=== PATIENT | female | born 1980 | race Caucasian/White ===

== ENCOUNTER 2017-04-11 22:47 | Emergency (ER) | payer SELFPAY ==
[2017-04-11 23:12] VITALS: BMI 42.9
--- NOTE | 2017-04-11 23:16 | ED PDOC ---
Arrival/HPI - General Chief Complaint: Chest Pain Time Seen by Provider: 04/11/17 22:52 Historian: Patient - History of Present Illness Narrative History of Present Illness (Text): 04/11/17 23:13 Shilpi Field is a 36 year old female who presents to the emergency department complaining of chest tightness and palpitations since earlier today. States that she has URI/sinus congestion and took Theraflu earlier today, after which the symptoms presented. Currently states she experiences chest tightness only while coughing. Denies any fever, chills, headache, dizziness, shortness of breath, abdominal pain, nausea, vomiting, diarrhea, urinary symptoms, or any other complaints at this time. Time/Duration: Other (tonight ) Symptom Course: Intermittent Severity Level: Mild Activities at Onset: Light Context: Home Past Medical History - Provider Review Nursing Documentation Reviewed: Yes - Psychiatric Hx Substance Use: No Family/Social History - Physician Review Nursing Documentation Reviewed: Yes Family/Social History: No Known Family HX Smoking Status: y Hx Alcohol Use: No Hx Substance Use: No Allergies/Home Meds Allergies/Adverse Reactions: Allergies No Known Allergies Allergy (Verified 02/22/15 13:41) Review of Systems - Physician Review All systems were reviewed & negative as marked: Yes - Review of Systems Constitutional: Normal. absent: Fatigue, Fevers ENT: Rhinorrhea, Sinus Congestion Respiratory: Cough. absent: SOB, Sputum Cardiovascular: Chest Pain, Palpitations Gastrointestinal: Normal. absent: Abdominal Pain, Diarrhea, Nausea, Vomiting Genitourinary Female: Normal Neurological: Normal. absent: Headache, Dizziness Psychiatric: Normal Physical Exam Vital Signs Reviewed: Yes Vital Signs Pulse Resp BP Pulse Ox 04/12/17 01:42 99 H 20 137/83 95 Temperature: Afebrile Blood Pressure: Normal Pulse: Regular Respiratory Rate: Normal Appearance: Positive for: Well-Appearing, Non-Toxic, Comfortable Pain Distress: None Mental Status: Positive for: Alert and Oriented X 3 - Systems Exam Head: Present: Atraumatic, Normocephalic Pupils: Present: PERRL Conjunctiva: Present: Normal Mouth: Present: Moist Mucous Membranes Respiratory/Chest: Present: Clear to Auscultation, Good Air Exchange. No: Respiratory Distress, Accessory Muscle Use Cardiovascular: Present: Regular Rate and Rhythm, Normal S1, S2. No: Murmurs Abdomen: Present: Normal Bowel Sounds. No: Tenderness, Distention, Peritoneal Signs Upper Extremity: Present: Normal Inspection. No: Cyanosis, Edema Lower Extremity: Present: Normal Inspection. No: Edema Neurological: Present: GCS=15, CN II-XII Intact, Speech Normal, Motor Func Grossly Intact, Normal Sensory Function Psychiatric: Present: Alert, Oriented x 3, Normal Insight, Normal Concentration Medical Decision Making ED Course and Treatment: 04/11/17 23:18 Impression: A 36 year old female who presents to the emergency department complaining of chest pressure and palpitations following taking Theraflu earlier tonight. Plan: -- EKG -- Labs, cardiac enzymes -- D-dimer -- POC Urine -- Urinalysis -- Reassess and disposition Progress Notes: 04/12/17 01:59 EKG reviewed by me: Sinus Tachycardia @ 117 bpm. Normal axis. Normal interval. Chest X-ray reviewed by me: No acute processes On re-evaluation, patient feels better and is in no acute distress. pt pain related to cough will dc on ab I have discussed the results and plan with the patient, who expresses understanding. Patient in agreement with plan to be discharged home. Patient is stable for discharge. Patient was instructed to follow up with physician or return if symptoms worsen or new concerning symptoms arise. 04/13/17 22:48 - Lab Interpretations Microbiology Results: Microbiology Results 04/12/17 06:00 Urine,Clean Catch Urine Culture - Final 10-50,000 CFU/ML. MULTIPLE SPECIES. PROBABLE CONTAMINATION. Lab Results: 04/11/17 23:20 04/11/17 23:20 Lab Results 04/11/17 23:35: Urine Color Yellow, Urine Appearance Sl cloudy, Urine pH 6.0, Ur Specific [place] 1.025, Urine Protein Trace H, Urine Glucose (UA) Negative, Urine Ketones Negative, Urine Blood Trace-intact H, Urine Nitrate Negative, Urine Bilirubin Negative, Urine Urobilinogen 0.2, Ur Leukocyte Esterase Small H , Urine RBC 0 - 2, Urine WBC 5 - 10, Ur Epithelial Cells 1 - 3, Urine Bacteria Small 04/11/17 23:20: Sodium 139, Potassium 3.7, Chloride 104, Carbon Dioxide 26, Anion Gap 13, BUN 13, Creatinine 1.0, Est GFR ( Amer) > 60, Est GFR (Non- Af Amer) > 60, Random Glucose 143 H, Calcium 9.1, Magnesium 1.8, Total Bilirubin 0.2, AST 33, ALT 31, Alkaline Phosphatase 71, Lactate Dehydrogenase 430, Total Creatine Kinase 367 H, CK-MB (CK-2) 1.7, CK-MB (CK-2) % Cancelled, Troponin I < 0.01, Total Protein 7.5, Albumin 3.9, Globulin 3.6, Albumin/ Globulin Ratio 1.1 04/11/17 23:20: PT 11.1, INR 1.03, APTT 26.0, D-Dimer, Quantitative 0.33 04/11/17 23:20: WBC 9.2, RBC 4.67, Hgb 11.6 L, Hct 36.9, MCV 79.0 L, MCH 24.8 L , MCHC 31.4, RDW 14.1, Plt Count 210, MPV 9.6, Gran % 51.4, Lymph % (Auto) 32.3 , [place] % (Auto) 10.3 H, Eos % (Auto) 5.8 H, Baso % (Auto) 0.2, Gran # 4.70, Lymph # 3.0, [place] # 0.9 H, Eos # 0.5, Baso # 0.02 - RAD Interpretation Radiology Orders: 04/12/17 00:21 CHEST PORTABLE [RAD] Stat - Medication Orders Current Medication Orders: Discontinued Medications Amoxicillin (Amoxil 500 Mg Cap) 500 mg PO STAT STA PRN Reason: Protocol Stop: 04/12/17 01:51 Last Admin: 04/12/17 02:00 Dose: 500 mg DAVE Risk Score for UA/NSTEMI - DAVE Risk Score Age > 64: NO 3 or more CAD Risk Factors: NO Known CAD (Stenosis greater than 50%): NO Aspirin use in past 7 days: NO Severe Angina: NO EKG ST changes greater than 0.5mm: NO Positive Cardiac Marker: NO DAVE Score: 0 % risk at 14 days of: all cause mortality, new or recurrent NC, or severe recurrent ischemia requiring urgen revascularization: 5% Wells Criteria for PE - Wells Criteria for Pulmonary Embolism Clinical Signs and Symptoms of DVT: No P.E is #1 Diagnosis, or Equally Likely: No Heart Rate >100: Yes Immobilization at least 3 days;Surgery previous 4 weeks: No Previous, objectively diagnosed PE or DVT: No Hemoptysis: No Malignancy w/treatment within 6 months, or palliative: No Total Score: 1.5 - Scribe Statement The provider has reviewed the documentation as recorded by the Saundraibvin Gauthier Provider Attestation: Provider Scribe Attestation: All medical record entries made by the Scribe were at my direction and personally dictated by me. I have reviewed the chart and agree that the record accurately reflects my personal performance of the history, physical exam, medical decision making, and the department course for this patient. I have also personally directed, reviewed, and agree with the discharge instructions and disposition. Disposition/Present on Arrival - Present on Arrival Any Indicators Present on Arrival: No History of DVT/PE: No History of Uncontrolled Diabetes: No Urinary Catheter: No History of Decub. Ulcer: No History Surgical Site Infection Following: None - Disposition Have Diagnosis and Disposition been Completed?: Yes Diagnosis: Upper respiratory disease Disposition: HOME/ ROUTINE Disposition Time: 02:20 Condition: FAIR Discharge Instructions (ExitCare): Upper Respiratory Infection (ED) Prescriptions: Amoxicillin 875 mg PO BID #20 tab Referrals: Silviano Rhodes, [Non-Staff] - Follow up with primary
[2017-04-11 23:27] LABS: ADD MANUAL DIFF? NO
[2017-04-11 23:42] LABS: BASO # 0.02 K/mm3 (0.0-2.0); BASO % 0.2 % (0.0-3.0); EOS # 0.5 (0.0-0.7); EOS % 5.8 % (1.5-5.0); GRAN % 51.4 % (50.0-68.0); HEMATOCRIT 36.9 % (36.0-48.0); LYMPH % 32.3 % (22.0-35.0); MEAN CORPUSCULAR HEMOGLOBIN 24.8 pg (25.0-35.0); MEAN CORPUSCULAR HGB CONC 31.4 g/dl (31.0-37.0); MEAN PLATELET VOLUME 9.6 fl (7.0-11.0); MONO # 0.9 (0.1-0.6); MONO % 10.3 % (1.0-6.0); PLATELET COUNT 210 10^3/uL (120.0-450.0); RED CELL DISTRIBUTION WIDTH 14.1 % (11.5-14.5); WHITE BLOOD COUNT 9.2 10^3/ul (4.5-11.0)
[2017-04-11 23:46] LABS: ALB/GLOB RATIO 1.1 (1.1-1.8); ALKALINE PHOSPHATASE 71 U/L (38-133); ALT/SGPT 31 U/L (7-56); AST/SGOT 33 U/L (15-39); BILIRUBIN,TOTAL 0.2 mg/dL (0.2-1.3); BLOOD UREA NITROGEN 13 mg/dL (7-21); CALCIUM 9.1 mg/dL (8.4-10.5); CARBON DIOXIDE 26 mmol/L (21-33); CHLORIDE 104 mmol/L (98-107); GFR AFRICAN-AMERICAN > 60; GLUCOSE,RANDOM 143 mg/dL (70-110); MAGNESIUM 1.8 mg/dL (1.7-2.2); POTASSIUM 3.7 mmol/L (3.6-5.0); SODIUM 139 mmol/L (132-148); TOTAL PROTEIN 7.5 g/dL (5.8-8.3)
[2017-04-11 23:58] LABS: INR 1.03 (0.93-1.08)
[2017-04-12 00:07] LABS: D DIMER 0.33 mg/L FEU (0-0.50)
[2017-04-12 00:19] LABS: TROPONIN I < 0.01 ng/mL
[2017-04-12 00:33] LABS: URINE BILIRUBIN NEGATIVE (NEGATIVE); URINE BLOOD TRACE-INTACT (NEGATIVE); URINE GLUCOSE (UA) NEGATIVE (NEGATIVE); URINE KETONE NEGATIVE (NEGATIVE); URINE LEUKOCYTE ESTERASE SMALL Leu/uL (NEGATIVE); URINE PROTEIN TRACE mg/dL (<30 mg/dL); URINE UROBILINOGEN 0.2 E.U./dL (<1 E.U./dL)
[2017-04-12 00:36] LABS: URINE APPEARANCE SL CLOUDY (CLEAR); URINE COLOR YELLOW (YELLOW)
[2017-04-12 00:45] LABS: URINE BACTERIA SMALL (NEG); URINE RBC 0 - 2 /hpf (0-2)
[2017-04-12 01:43] VITALS: BP 137/83; PULSE 99; RESP 20; O2SAT 95
--- NOTE | 2017-04-12 08:45 | RAD ---
HISTORY: cp COMPARISON: No prior. FINDINGS: LUNGS: No active pulmonary disease. PLEURA: No significant pleural effusion identified, no pneumothorax apparent. CARDIOVASCULAR: Normal. OSSEOUS STRUCTURES: No significant abnormalities. VISUALIZED UPPER ABDOMEN: Normal. OTHER FINDINGS: None. IMPRESSION: No active disease.
--- NOTE | 2017-04-12 22:39 | CARD ---
APPROVED REPORT EKG Measurement Heart [id number] [place] [id number] <Conclusion> Sinus tachycardia Otherwise normal ECG
== END 2017-04-12 02:21 | disposition home or self-care (01) ==
LOC: ED 22:47 → MERGE 22:47 → ED 04-12 02:21
DX: J39.9 Disease of upper respiratory tract, unspecified (principal)